=== PATIENT | male | born 1990 | race Hispanic/Latino ===

== ENCOUNTER 2025-01-07 19:44 | Emergency (ER) | payer OTHER ==
[~2025-01-07] VITALS: Ht 177.8 cm; Wt 110.2 kg
[2025-01-07 19:54] VITALS: PULSE 66; RESP 17; TEMP 98.1
[2025-01-07] MEDS ORDERED: AMOXICILLIN875 MG PO (20:50)
[2025-01-07] MEDS: AMOXICILLIN/CLAVULANATE K 875 MG TAB PO STA (21:04)
[2025-01-07 21:13] VITALS: BP 166/83; PULSE 65; RESP 18; TEMP 98.1; O2SAT 99
== END 2025-01-07 21:13 | disposition home or self-care (01) ==
LOC: FSED 20:03
DX: R51.9 Headache, unspecified (principal); H66.92 Otitis media, unspecified, left ear; Z11.52 Encounter for screening for COVID-19
CPT/HCPCS: 0223U; 36415; 70450; 82948; 87400; 99283